=== PATIENT | female | born 1995 | race Caucasian/White ===

== ENCOUNTER 2021-03-21 17:29 | Observation (INO) | payer OTHER ==
[~2021-03-21] VITALS: Ht 162.6 cm; Wt 81.6 kg
[~2021-03-21 17:29] MED LIST: COLACE 100MG C100 MG PO; IBUPROFEN600 MG PO; LORTAB 5-325 M1 EACH PO
[2021-03-21 17:56] LABS: HEMOGLOBIN 12.9 gm/dl (12.3-15.3); RED BLOOD COUNT 4.36 M/UL (4.00-5.10); WHITE BLOOD COUNT 3.5 K/UL (4.5-11.0)
[2021-03-21 18:20] LABS: BUN/CREATININE RATIO 13 (0-10)
[2021-03-22] MEDS ORDERED: ONDANSETRON ODT8 MG PO (10:52)
[2021-03-22] MEDS ORDERED: PHENERGAN 25 MG25 M1 PO (10:52)
== END 2021-03-22 17:21 | disposition home or self-care (01) ==
LOC: OB 17:29 → GENOP 17:29 → OB 17:33
PROVIDERS: ADMIT Obstetrics & Gynecology
DX: O21.9 Vomiting of pregnancy, unspecified (principal); O99.282 Endocrine, nutritional and metabolic diseases complicating pregnancy, second trimester; E86.0 Dehydration; O98.512 Other viral diseases complicating pregnancy, second trimester; U07.1 COVID-19; O99.612 Diseases of the digestive system complicating pregnancy, second trimester; K52.9 Noninfective gastroenteritis and colitis, unspecified; Z87.440 Personal history of urinary (tract) infections; Z88.1 Allergy status to other antibiotic agents; Z91.030 Bee allergy status; Z3A.14 14 weeks gestation of pregnancy
CPT/HCPCS: 80053; 81001; 85025; 87086; 96365; 96375; 96376; C9113; G0378; J2405; J2550; J7120; U0002

== ENCOUNTER 2021-09-15 05:40 | Inpatient (IN) | payer OTHER ==
[~2021-09-15] VITALS: Ht 162.6 cm; Wt 88.9 kg
[~2021-09-15 05:40] MED LIST changes: +ONDANSETRON ODT8 MG PO; +PHENERGAN 25 MG25 M1 PO
[2021-09-15 07:17] LABS: HEMOGLOBIN 10.9 gm/dl (12.3-15.3); RED BLOOD COUNT 3.76 M/UL (4.00-5.10); WHITE BLOOD COUNT 7.6 K/UL (4.5-11.0)
[2021-09-15] MEDS ORDERED: COLACE 100MG C100 MG PO (15:58)
[2021-09-15] MEDS ORDERED: IBUPROFEN600 MG PO (15:58)
[2021-09-16 07:41] LABS: HEMOGLOBIN 10.4 gm/dl (12.3-15.3)
[2021-09-16] MEDS ORDERED: HYDROCODON-ACE1 EAC4 PO (11:34)
== END 2021-09-16 18:12 | disposition home or self-care (01) | DRG 807 ==
LOC: OB 05:40
PROVIDERS: Obstetrics & Gynecology; ADMIT Obstetrics & Gynecology
PROC: 10E0XZZ Delivery of Products of Conception, External Approach (ICD-10-PCS; principal; 2021-09-15)
PROC: 10907ZC Drainage of Amniotic Fluid, Therapeutic from Products of Conception, Via Natural or Artificial Opening (ICD-10-PCS; 2021-09-15)
PROC: 3E033VJ Introduction of Other Hormone into Peripheral Vein, Percutaneous Approach (ICD-10-PCS; 2021-09-15)
PROC: 3E0234Z Introduction of Serum, Toxoid and Vaccine into Muscle, Percutaneous Approach (ICD-10-PCS; 2021-09-15)
DX: O80 Encounter for full-term uncomplicated delivery (principal); Z37.0 Single live birth; Z3A.39 39 weeks gestation of pregnancy; Z90.49 Acquired absence of other specified parts of digestive tract; Z20.822 Contact with and (suspected) exposure to COVID-19; Z91.030 Bee allergy status; Z88.8 Allergy status to other drugs, medicaments and biological substances; Z88.2 Allergy status to sulfonamides; Z23 Encounter for immunization
CPT/HCPCS: 36415; 81001; 82800; 85014; 85018; 85025; 86850; 86900; 86901; 90715; J2590; J7120

== ENCOUNTER 2022-03-08 14:38 | Emergency (ER) | payer OTHER ==
[~2022-03-08 14:38] MED LIST changes: +HYDROCODON-ACE1 EAC4 PO
[2022-03-08] MEDS ORDERED: PEPCID20 MG PO (16:24)
[2022-03-08] MEDS ORDERED: EPIPEN 2-P0.3 MG/0.3 INJ (16:24)
[2022-03-08] MEDS ORDERED: PREDNISONE 20 M20 MG PO (16:24)
[2022-03-08] MEDS ORDERED: BENADRYL 50MG C50 MG PO (16:24)
== END 2022-03-08 16:41 | disposition home or self-care (01) ==
LOC: ER1 14:38
DX: T63.441A Toxic effect of venom of bees, accidental (unintentional), initial encounter (principal); Z90.49 Acquired absence of other specified parts of digestive tract; K13.0 Diseases of lips
CPT/HCPCS: 84703; 96374; 96375; 99283; J1200; J2930

== ENCOUNTER 2022-03-10 23:15 | Emergency (ER) | payer OTHER ==
[~2022-03-10 23:15] MED LIST changes: +BENADRYL 50MG C50 MG PO; +EPIPEN 2-P0.3 MG/0.3 INJ; +PEPCID20 MG PO; +PREDNISONE 20 M20 MG PO
[2022-03-11 00:07] LABS: BORDETELLA PARAPERTUSSIS Not Detected (Not Detectd); BORDETELLA PERTUSSIS Not Detected (Not Detectd); CHLAMYDIA PNEUMONIAE Not Detected (Not Detectd); CORONAVIRUS HKU1 Not Detected (Not Detectd); CORONAVIRUS NL63 Not Detected (Not Detectd); CORONAVIRUS OC43 Not Detected (Not Detectd); CORONOAVIRUS 229E Not Detected (Not Detectd); HUMAN METAPNEUMOVIRUS Not Detected (Not Detectd); HUMAN RHINOVIRUS/ENTEROVIRUS Not Detected (Not Detectd); INFLUENZA A Not Detected (Not Detectd); INFLUENZA B Not Detected (Not Detectd); MYCOPLASMA PNEUMONIAE Not Detected (Not Detectd); PARAINFLUENZA VIRUS 1 Not Detected (Not Detectd); PARAINFLUENZA VIRUS 2 Not Detected (Not Detectd); PARAINFLUENZA VIRUS 3 Not Detected (Not Detectd); PARAINFLUENZA VIRUS 4 Not Detected (Not Detectd); RESPIRATORY SYNCYTIAL VIRUS Not Detected (Not Detectd)
[2022-03-11 01:12] LABS: HEMOGLOBIN 14.6 gm/dl (12.3-15.3); WHITE BLOOD COUNT 9.5 K/UL (4.5-11.0)
[2022-03-11 01:13] LABS: SARS-CoV-2 NOT DETECTED (Not Detectd)
[2022-03-11 01:38] LABS: BUN/CREATININE RATIO 12 (0-10)
== END 2022-03-11 02:50 | disposition home or self-care (01) ==
LOC: ER1 23:15
PROVIDERS: Physician Assistant
DX: R55 Syncope and collapse (principal); T78.40XA Allergy, unspecified, initial encounter; Z90.49 Acquired absence of other specified parts of digestive tract; Z88.1 Allergy status to other antibiotic agents; Z79.899 Other long term (current) drug therapy
CPT/HCPCS: 71045; 80053; 81001; 82550; 82553; 84484; 84703; 85025; 85379; 87086; 87633; 93005; 99284; J2930